=== PATIENT | female | born 1995 | race Caucasian/White ===

== ENCOUNTER 2018-12-23 05:09 | Inpatient (IN) | payer OTHER ==
[~2018-12-23] VITALS: Ht 154.9 cm; Wt 118.5 kg
[~2018-12-23 05:09] MED LIST: RINGERS SOLUTION,LACTATED 1,000 ML IV ONE
[2018-12-23] MEDS ORDERED: SODIUM CL IRRIG SOLN BAG 0 ML IRRIG ONE (05:51)
[2018-12-23] MEDS ORDERED: BUPIVACAINE HCL/PF 0.5% 30 ML VIAL ONE (05:51)
[2018-12-23] MEDS ORDERED: VANCOMYCIN HCL 1 GM/VIAL ONE (05:54)
[2018-12-23] MEDS ORDERED: MUPIROCIN CALCIUM 2% 22 GM OINTMENT ONE (05:54)
[2018-12-23] MEDS ORDERED: RINGERS SOLUTION,LACTATED 1,000 ML IV ONE ×2 (05:55)
[2018-12-23] MEDS ORDERED: MICROFIBRILLAR COLLAGEN 1 GM PACKAGE TP ONE (05:55)
[2018-12-23] MEDS ORDERED: BUPIVACAINE LIPOSOME/PF 1.3%-13.3MG/ML SUSPENSION 20 ML VIAL INJ ONE (06:00)
[2018-12-23] MEDS ORDERED: CeFAZolin 2 GM/DEXTROSE 50 ML IV ONE (06:00)
[2018-12-23] MEDS ORDERED: RINGERS SOLUTION,LACTATED 2,000 ML IV ONE (06:15)
[2018-12-23] MEDS ORDERED: TRANEXAMIC ACID 1,000 MG in DEXTROSE 5%-WATER 50 ML IV ONE (08:00)
[2018-12-23] MEDS ORDERED: ACETAMINOPHEN 1000 MG/ISO-OSM 100 ML IV ONE ×2 (08:30→08:50)
[2018-12-23] MEDS ORDERED: HYDROmorphone 2 MG/ML SYRINGE IVP PRN ×2 (08:30→10:15)
[2018-12-23] MEDS ORDERED: MIDAZOLAM HCL 5 MG/ML VIAL IVP PRN (08:30)
[2018-12-23] MEDS ORDERED: SUGAMMADEX SODIUM 200 MG/2 ML VIAL IVP ONE (08:50)
[2018-12-23] MEDS ORDERED: MEPERIDINE-PF 25 MG/ML VIAL ONE (10:08)
[2018-12-23] MEDS: MEPERIDINE-PF 25 MG/ML VIAL IVP PRN ×2 (10:10→10:24)
[2018-12-23] MEDS ORDERED: HYDROmorphone 2 MG/ML SYRINGE ONE (10:13)
[2018-12-23] MEDS: HYDROmorphone 2 MG/ML SYRINGE IVP PRN ×2 (10:14→10:28)
[2018-12-23] MEDS ORDERED: ZOLPIDEM TARTRATE 5 MG TABLET PO PRN (10:15)
[2018-12-23 11:48] VITALS: BP 109/63
[2018-12-23] MEDS: ONDANSETRON HCL 4 MG/2 ML VIAL IVP PRN ×2 (11:55→12:06)
[2018-12-23] MEDS ORDERED: SUCCINYLCHOLINE CHLORIDE 20 MG/ML 10 ML VIAL IVP ONE (12:00)
[2018-12-23] MEDS ORDERED: PROPOFOL 1% 20 ML VIAL IVP ONE (12:00)
[2018-12-23] MEDS ORDERED: LIDOCAINE/PF 2% 5 ML VIAL INJ ONE (12:00)
[2018-12-23] MEDS ORDERED: MIDAZOLAM HCL 2 MG/2 ML VIAL IVP ONE (12:00)
[2018-12-23] MEDS ORDERED: VECURONIUM BROMIDE 10 MG/VIAL IVP ONE (12:00)
[2018-12-23] MEDS ORDERED: KETAMINE HCL 50 MG/ML 10 ML VIAL IVP ONE (12:00)
[2018-12-23] MEDS ORDERED: ONDANSETRON HCL 4 MG/2 ML VIAL IVP PRN (12:00)
[2018-12-23] MEDS ORDERED: FentaNYL CITRATE-PF 100 MCG/2 ML VIAL IVP ONE (12:00)
[2018-12-23] MEDS ORDERED: SODIUM CHLORIDE 0.9% 250 ML IV ONE (14:35)
[2018-12-23] MEDS: CeFAZolin 2 GM/DEXTROSE 50 ML IV SCH ×2 (14:42→23:35)
[2018-12-23] MEDS: ACETAMINOPHEN 1000 MG/ISO-OSM 100 ML IV SCH ×2 (16:04→23:45)
[2018-12-23 16:06] VITALS: BP 108/65
[2018-12-23] MEDS: CYCLOBENZAPRINE HCL 10 MG TABLET PO SCH ×2 (16:11→23:35)
[2018-12-23] MEDS: OxyCODONE HCL 10 MG IR TABLET PO PRN ×2 (17:41→22:50)
[2018-12-23 20:08] VITALS: BP 101/50
[2018-12-23 23:20] VITALS: BP 123/59
[2018-12-24] MEDS: OxyCODONE HCL 10 MG IR TABLET PO PRN ×2 (03:22→19:52)
[2018-12-24 04:15] VITALS: BP 113/60
[2018-12-24 07:40] VITALS: BP 108/71
[2018-12-24] MEDS: CYCLOBENZAPRINE HCL 10 MG TABLET PO SCH ×3 (09:12→23:54)
[2018-12-24] MEDS: ACETAMINOPHEN 1000 MG/ISO-OSM 100 ML IV SCH (09:12)
[2018-12-24] MEDS: ENOXAPARIN SODIUM 30 MG/0.3 ML PF SYRINGE SQ SCH ×2 (09:13→19:52)
[2018-12-24 10:40] LABS: BASOPHILS % (AUTO) 0.3 % (0.0-2.0); EOSINOPHILS % (AUTO) 1.5 % (1.0-6.0); HEMATOCRIT 39.1 % (36-46); HEMOGLOBIN 12.8 g/dL (12.0-16.0); LYMPHOCYTES # (AUTO) 1.6 K/uL (1.0-4.8); LYMPHOCYTES % (AUTO) 14.2 % (22.0-44.0); MEAN CORPUSCULAR HEMOGLOBIN 27.6 pg (26.0-34.0); MEAN CORPUSCULAR HGB CONC 32.7 G/dL (31.0-37.0); MEAN CORPUSCULAR VOLUME 85 fL (80-100); MONOCYTES # (AUTO) 0.9 K/uL (0.1-1.0); MONOCYTES % (AUTO) 7.7 % (2.0-9.0); NEUTROPHILS # (AUTO) 8.6 K/uL (1.8-7.7); NEUTROPHILS % (AUTO) 76.3 % (40.0-70.0); PLATELET COUNT (AUTO) 233 K/uL (150-450); RED BLOOD CELL COUNT(AUTO) 4.63 MIL/uL (4.00-5.20); RED CELL DISTRIBUTION WIDTH 13.4 % (11.5-14.5)
[2018-12-24 11:31] VITALS: BP 108/63
[2018-12-24 15:28] VITALS: BP 110/65
[2018-12-24 19:49] VITALS: BP 125/92
[2018-12-25] VITALS (7 sets, daily range): BP systolic 107–146; BP diastolic 60–81
[2018-12-25] MEDS: ENOXAPARIN SODIUM 30 MG/0.3 ML PF SYRINGE SQ SCH ×2 (08:12→20:29)
[2018-12-25] MEDS: CYCLOBENZAPRINE HCL 10 MG TABLET PO SCH ×3 (08:12→22:57)
[2018-12-25] MEDS: OxyCODONE HCL 10 MG IR TABLET PO PRN ×2 (08:12→16:30)
[2018-12-25] MEDS ORDERED: ACETAMINOPHEN 325 MG TABLET PO PRN (20:30)
[2018-12-26 04:00] VITALS: BP 119/61
[2018-12-26 07:25] VITALS: BP 109/67
[2018-12-26] MEDS: CYCLOBENZAPRINE HCL 10 MG TABLET PO SCH (07:57)
[2018-12-26] MEDS: ENOXAPARIN SODIUM 30 MG/0.3 ML PF SYRINGE SQ SCH (07:57)
[2018-12-26] MEDS: OxyCODONE HCL 10 MG IR TABLET PO PRN (07:57)
[2018-12-26] MEDS ORDERED: HYDROCODONE/ACETAMINOPHEN 5-325 MG TABLET PO PRN ×2 (12:45)
[2018-12-26] MEDS ORDERED: HYDR-4061 PO ×2 (12:49→12:50)
[2018-12-26] MEDS ORDERED: DSS100 PO (12:51)
[2018-12-26] MEDS ORDERED: CYCL10 PO (12:51)
[2018-12-26] MEDS ORDERED: ENOX30DI5 SQ (12:59)
[2018-12-26] MEDS ORDERED: DOCUSATE SODIUM 100 MG CAPSULE PO PRN (13:00)
[2018-12-26] MEDS ORDERED: CYCLOBENZAPRINE HCL 10 MG TABLET PO SCH (16:00)
[2018-12-26 19:20] VITALS: BP 140/83
[2018-12-26] MEDS ORDERED: ENOXAPARIN SODIUM 30 MG/0.3 ML PF SYRINGE SQ SCH (21:00)
== END 2018-12-26 15:30 | disposition home or self-care (01) | DRG 481 ==
LOC: 4E 05:09
PROVIDERS: ADMIT Orthopaedic Surgery; ATTEND Orthopaedic Surgery
PROC: 0SBB0ZZ Excision of Left Hip Joint, Open Approach (ICD-10-PCS; 2018-12-23)
PROC: 0SQB0ZZ Repair Left Hip Joint, Open Approach (ICD-10-PCS; principal; 2018-12-23 07:00)
DX: S73.102A Unspecified sprain of left hip, initial encounter (principal); Z68.42 Body mass index [BMI] 45.0-49.9, adult; M25.552 Pain in left hip; E66.01 Morbid (severe) obesity due to excess calories; X58.XXXA Exposure to other specified factors, initial encounter; Y93.89 Activity, other specified; Y92.89 Other specified places as the place of occurrence of the external cause; Y99.8 Other external cause status
CPT/HCPCS: 73503; 87081; 97116; 97162; 97166; 97530; 97535; C9290; G0238; G0378; J0131; J0330; J0690; J1170; J1650; J2175; J2250; J2405; J2704; J3010; J3370; J3490; J7050; J7060; J7120